=== PATIENT | male | born 1950 | race Caucasian/White ===

== ENCOUNTER 2017-03-04 09:34 | Emergency (ER) | payer SELFPAY ==
[2017-03-04] MEDS ORDERED: ZOCOR20 M1 PO (10:04)
[2017-03-04] MEDS ORDERED: BP MEDICATION PO (10:04)
[2017-03-04 10:59] LABS: INFLUENZA A NONE DETECTED (NONE DETECT); INFLUENZA B NONE DETECTED (NONE DETECT)
[2017-03-04] MEDS ORDERED: MEDDOSEPAK PO (11:44)
[2017-03-04] MEDS ORDERED: ZPAK PO (11:44)
[2017-03-04] MEDS ORDERED: PROVENTIL HFA IN (11:44)
[2017-03-04 11:48] VITALS: BP 142/88
== END 2017-03-04 11:48 | disposition home or self-care (01) | DRG 203 ==
LOC: ED 09:34
PROVIDERS: Emergency Medicine
DX: J40 Bronchitis, not specified as acute or chronic (principal); R05 Cough; R09.81 Nasal congestion; Z72.0 Tobacco use